=== PATIENT | female | born 1980 | race African-American/Black ===

== ENCOUNTER 2017-06-10 15:21 | Emergency (ER) | payer BC, SELFPAY ==
[2017-06-10] MEDS ORDERED: Ketorolac Tromethamine 30 MG/ML VIAL ONE (15:51)
== END 2017-06-10 16:06 | disposition home or self-care (01) ==
LOC: SCSER 15:21
DX: R51 Headache (principal); I10 Essential (primary) hypertension
CPT/HCPCS: 96372; J1885